=== PATIENT | male | born 1960 | race Caucasian/White ===

== ENCOUNTER 2021-12-11 22:25 | Emergency (ER) | payer SELFPAY ==
[2021-12-11] MEDS: Ketamine 200 MG/20 ML MDV IV ONE (22:39)
[2021-12-11] MEDS ORDERED: Lidocaine 1% with EPINEPHrine 1:100,000 10 ML MDV ONE (22:43)
[2021-12-11] MEDS ORDERED: Sodium Chloride 0.9% 10 ML Syringe FLUSH PRN (22:44)
[2021-12-11] MEDS ORDERED: Midazolam 1 MG/ML 2 ML SDV IV ONE (22:48)
[2021-12-11] MEDS ORDERED: HYDROmorphone 1 MG/ML Syringe IVPUSH ONE (23:07)
[2021-12-11] MEDS ORDERED: HYDROmorphone 1 MG/ML Syringe ONE (23:09)
[2021-12-11] MEDS ORDERED: Sodium Chloride 0.9% 1,000 ML IV ONE (23:10)
[2021-12-11 23:15] LABS: CHLORIDE,CL 106 mmol/L (98-107); SODIUM,NA 140 mmol/L (136-145)
[2021-12-11 23:25] LABS: ESTIMATED GFR 98 mL/min (>=60)
[2021-12-11] MEDS ORDERED: HYDROmorphone 2 MG/ML Syringe ONE (23:33)
[2021-12-11 23:34] LABS: PTT,PARTIAL THROMBOPLSTIN TIME 21.9 SEC (22.8-31.4)
[2021-12-12] MEDS ORDERED: Lidocaine 1% 5 ML VIAL INJECT ONE (00:13)
[2021-12-12] MEDS ORDERED: Sodium Chloride 0.9% 1,000 ML ONE (00:27)
[2021-12-12] MEDS ORDERED: Sodium Chloride 0.9% 1,000 ML IV SCH (01:00)
[2021-12-12] MEDS ORDERED: HYDROmorphone 1 MG/ML Syringe IVPUSH ONE (01:33)
[2021-12-12] MEDS ORDERED: Lidocaine 1% with EPINEPHrine 1:100,000 10 ML MDV INJECT ONE (01:33)
[2021-12-12] MEDS ORDERED: Midazolam 1 MG/ML 2 ML SDV ONE (10:14)
[2021-12-12] MEDS ORDERED: Ketamine 200 MG/20 ML MDV ONE (10:19)
[2021-12-13] MEDS: Ketamine 200 MG/20 ML MDV IV ONE (09:16)
== END 2021-12-12 01:15 ==
LOC: KA.ED 22:25 → MERGE 22:25 → KA.ED 12-12 01:15
DX: S01.01XA Laceration without foreign body of scalp, initial encounter (principal); S27.0XXA Traumatic pneumothorax, initial encounter; S16.1XXA Strain of muscle, fascia and tendon at neck level, initial encounter; W26.8XXA Contact with other sharp object(s), not elsewhere classified, initial encounter
CPT/HCPCS: 12002; 32551; 70450; 71045; 72125; 72170; 73130-RT; 80053; 84484; 85025; 85610; 85730; 96361; 96374; 99285-25; J1170; J2250; J7030